=== PATIENT | male | born 1965 | race African-American/Black ===

== ENCOUNTER 2018-09-03 21:30 | Emergency (ER) | payer OTHER ==
[~2018-09-03] VITALS: Ht 180.3 cm; Wt 92.1 kg
[~2018-09-03 21:30] MED LIST: ADVIL100 M2 PO; APAP/CODEINE ELI5 M1 OR; APAP500 PO; AZITHROMYCIN 2250 MG PO; BENADRYL ALLERG25 MG PO; FLEXERIL PO; FLONASE 0.05%50 MCG NASAL; GABAPENTIN 100100 MG PO; GLUCOPHAGE500 MG PO; HUMALOG PE100 UNIT/1; HUMALOG100 UNIT/2 SUBQ; HYDROCODON-ACE1 EAC7 PO; HYDROCODONE-AP1 EAC6 PO; IBUPROFEN 400400 M2 PO; IBUPROFEN 800800 M1 PO; IBUPROFEN 800800 MG PO; LANTUS SOL100 UNIT/1 SUBQ; LEVAQUIN 500 M500 MG PO; LIPITOR 20 MG T20 M1 PO; LISINOPRIL20 MG PO; LOMOTIL TABLET1 EACH PO; MEDROLDOSEPACK PO; METFORMIN HCL500 M3 PO; METFORMIN HCL500 MG PO; NAPROSYN500 MG PO; NEURONTIN 400400 M1 PO; NOHOMEMEDICATIONS; NORCO 5-325 TA1 EACH PO; NORFLEX100 MG PO; NOVOLOG100 UNIT/1; NOVOLOG100 UNIT/1 SUBQ; PENICILLIN V P500 MG PO; PEPCID40 MG PO; PERCOCET 5-3251 EACH PO; PREDNISONE 20 M20 MG PO; TESSALON200 MG PO; TORADOL 10 MG T10 MG PO; TRAMADOL 50 MG50 MG PO; VALTREX 500 MG500 MG PO; VALTREX1000 MG PO; VIBRAMYCIN 100100 MG PO; XARELTO15 MG PO; ZOFRAN ODT4 MG PO; ZOVIRAX800 MG IV; ZPAK PO
[2018-09-03 22:04] LABS: URINE BILIRUBIN NEGATIVE (Negative); URINE BLOOD TRACE (Negative); URINE CLARITY CLEAR; URINE COLOR YELLOW; URINE GLUCOSE-RANDOM* 3+ (Negative); URINE KETONES TRACE (Negative); URINE LEUKOCYTES-REFLEX NEGATIVE (Negative); URINE NITRITE-REFLEX NEGATIVE (Negative); URINE PROTEIN (DIPSTICK) NEGATIVE (Negative); URINE UROBILINOGEN 0.2 E.U./dl (0.2-1.0)
[2018-09-03 22:05] LABS: ABSOLUTE NEUTROPHILS 5.2 thou/uL (1.4-8.2); BASOPHILS 0.4 % (0.0-2.0); EOSINOPHILS 1.3 % (0.0-3.0); HEMOGLOBIN 15.9 gm/dL (14.0-18.0); LYMPHOCYTES 27.7 % (24.0-44.0); MCH 30.5 pg (26.0-34.0); MCHC 34.6 g/dL (28.0-37.0); MCV 88.1 fL (80.0-100.0); MONOCYTES 10.1 % (1.0-8.0); PLATELET COUNT 302 thou/uL (150-400); POLYS 60.5 % (36.0-66.0); RBC 5.21 mil/uL (4.50-6.00); RDW 12.9 % (10.5-14.5); WBC 8.6 thou/uL (4.0-11.0)
[2018-09-03 22:12] LABS: CALCIUM 8.7 mg/dL (8.5-10.1); POTASSIUM 3.7 mmol/L (3.5-5.1)
[2018-09-03 22:18] LABS: ALBUMIN 3.4 g/dL (3.4-5.0); DIRECT BILIRUBIN 0.2 mg/dL (<0.1-0.3); TOTAL BILIRUBIN 1.2 mg/dL (<0.1-1.0); TOTAL PROTEIN 7.3 g/dL (6.4-8.2)
[2018-09-03] MEDS ORDERED: BENTYL 20 MG TA20 M1 PO (23:05)
[2018-09-03] MEDS ORDERED: ZOFRAN ODT4 MG PO (23:05)
[2018-09-03 23:25] VITALS: BP 112/78
== END 2018-09-03 23:26 | disposition home or self-care (01) ==
LOC: ER 21:30
PROVIDERS: Emergency Medicine
DX: R10.13 Epigastric pain (principal); R19.7 Diarrhea, unspecified; E11.9 Type 2 diabetes mellitus without complications; Z79.4 Long term (current) use of insulin

== ENCOUNTER 2020-06-28 14:44 | Emergency (ER) | payer BC, OTHER ==
[~2020-06-28] VITALS: Ht 180.3 cm; Wt 89.4 kg
[~2020-06-28 14:44] MED LIST changes: +BENTYL 20 MG TA20 M1 PO
[2020-06-28 15:41] LABS: BASOPHILS 0.7 % (0.0-2.0); EOSINOPHILS 0.6 % (0.0-3.0); HEMATOCRIT 43.8 % (42.0-52.0); HEMOGLOBIN 14.7 gm/dL (14.0-18.0); LYMPHOCYTES 30.6 % (24.0-44.0); MCH 30.3 pg (26.0-34.0); MCHC 33.7 g/dL (28.0-37.0); MCV 89.8 fL (80.0-100.0); MONOCYTES 9.1 % (1.0-8.0); PLATELET COUNT 338 thou/uL (150-400); RBC 4.87 mil/uL (4.50-6.00); RDW 12.8 % (10.5-14.5); WBC 6.9 thou/uL (4.0-11.0)
[2020-06-28 16:05] LABS: CALCIUM 8.9 mg/dL (8.5-10.1); POTASSIUM 4.1 mmol/L (3.5-5.1)
[2020-06-28 16:12] LABS: ALBUMIN 3.6 g/dL (3.4-5.0); DIRECT BILIRUBIN 0.1 mg/dL (<0.1-0.2); LIPASE 96 U/L (73-393); SGOT 7 U/L (15-37); SGPT 17 U/L (30-65); TOTAL BILIRUBIN 0.5 mg/dL (0.2-1.0); TOTAL PROTEIN 7.2 g/dL (6.4-8.2); TROPONIN-I <0.06 ng/mL (<0.06)
--- NOTE | 2020-06-28 16:30 | EKG ---
[facility] [place] [address] ELECTROCARDIOGRAM REPORT Name: HOLLIE NGUYEN Room #: PRE M..#: [id number] Admission: Attend Phys: Discharge: Date of : 69 Report #: [id number] THIS REPORT FOR: cc: TONI Harmon family physician/PCP Osorio Nathan MD [facility] ~ THIS REPORT FOR: //name// [facility] ED Test Date: 2020-06-28 Test Time: 15:23:18 Pat Name: HOLLIE NGUYEN Department: Room: Gender: M [employer]: : 1965 Requested By: Tramaine Saleh Order Number: [id number] MD: Osorio Nathan Measurements Intervals [place] Rate: 91 P: 52 NV: 136 QRS: 55 QRSD: 136 T: 45 QT: 389 QTc: 479 Interpretive Statements Sinus rhythm Right bundle branch block Non specifif ST-T changes Compared to ECG 09/15/2016 13:27:09 Right bundle-branch block now present Sinus tachycardia no longer present Electronically Signed On 06-28-2020 16:30:13 CDT by Osorio Nathan [email or web address] <ELECTRONICALLY SIGNED> By: Osorio Nathan MD, FACC 06/28/20 1630 1523 1523 Osorio Nathan MD, [facility] /EPI
[2020-06-28 17:30] VITALS: BP 124/79
== END 2020-06-28 17:31 | disposition left against medical advice (07) ==
LOC: ER 14:44
PROVIDERS: Nurse Practitioner
DX: E11.65 Type 2 diabetes mellitus with hyperglycemia (principal); R42 Dizziness and giddiness; R41.0 Disorientation, unspecified; R53.83 Other fatigue; Z79.899 Other long term (current) drug therapy; Z79.4 Long term (current) use of insulin

== ENCOUNTER 2021-05-19 07:41 | Emergency (ER) | payer BC, OTHER ==
[~2021-05-19] VITALS: Ht 180.3 cm; Wt 88.0 kg
[2021-05-19 10:03] VITALS: BP 137/82
== END 2021-05-19 10:26 | disposition home or self-care (01) ==
LOC: ER 07:41
PROVIDERS: Emergency Medicine
DX: M79.10 Myalgia, unspecified site (principal); Z20.822 Contact with and (suspected) exposure to COVID-19; E11.65 Type 2 diabetes mellitus with hyperglycemia; Z79.899 Other long term (current) drug therapy; Z79.891 Long term (current) use of opiate analgesic; Z79.4 Long term (current) use of insulin